=== PATIENT | male | born 1975 | race Caucasian/White ===

== ENCOUNTER → 2016-11-20 | Outpatient (CLI) | payer BC ==
[2014-07-19 08:53] VITALS: BP 138/78
--- NOTE | 2016-11-20 08:17 | RAD ---
Chest, 2 views, 11/20/2016: History: Chest congestion with cough The heart size and pulmonary vascularity are normal. No pulmonary infiltrates are seen. There is no evidence of pleural fluid. IMPRESSION: No acute cardiopulmonary abnormality is detected.
== END | disposition home or self-care (01) ==
LOC: DXRADRC 07:42
PROVIDERS: ATTEND Physician Assistant Medical
DX: R09.89 Other specified symptoms and signs involving the circulatory and respiratory systems (principal)
CPT/HCPCS: 71020

== ENCOUNTER → 2017-01-23 | Outpatient (CLI) | payer BC ==
[2014-07-19 08:53] VITALS: BP 138/78
--- NOTE | 2017-01-23 14:36 | RAD ---
Examination: 2 views of the right tibia and fibula History: History of painful red knot in the anterior right lower leg Comparison: None available Findings: The alignment of the tibia and fibula grossly appears unremarkable. There is no acute fracture identified. There is minimal soft tissue prominence identified in the subcutaneous region of the right mid leg region. Impression: 1. No acute osseous findings. 2. Minimal soft tissue prominence identified in the subcutaneous region of the right mid leg region, nonspecific. MRI with and without contrast may be useful for further evaluation if clinically feasible .
== END | disposition home or self-care (01) ==
LOC: DXRADRC 11:57
PROVIDERS: ATTEND General Practice
DX: L03.115 Cellulitis of right lower limb (principal)
CPT/HCPCS: 73590